=== PATIENT | male | born 1985 | race Caucasian/White ===

== ENCOUNTER 2017-02-17 16:42 | Emergency (ER) | payer OTHER ==
[~2017-02-17] VITALS: Ht 172.7 cm; Wt 85.0 kg
[2017-02-17 16:49] VITALS: Ht 172.7 cm; Wt 85.0 kg
[2017-02-17] MEDS ORDERED: TOPI200C PO (17:53)
[2017-02-17] MEDS ORDERED: BUPR100T14 PO (17:54)
--- NOTE | 2017-02-17 18:43 | RADRPT ---
PROCEDURE: Noncontrast CT Head. CLINICAL INDICATION: Trauma. TECHNIQUE: Noncontrast CT of the head was obtained. The administered radiation dose was CTDI vol = 45.01 mGy, DLP = 900.28 mGy-cm. One or more of the following dose reduction techniques were used: Au tomated exposure control, Adjustment of the mA and/or kV according to patient size, or Use of iterat reji reconstruction technique. COMPARISON: There are no similar studies submitted for comparison. FINDINGS: The ventricles and sulci are within normal limits. There is no loss of bowman-white differentiation to suggest acute territorial infarction. There is no acute intracranial hemorrhage. There is no mass effect. No midline shift is identified. The orbits are within normal limits. There is minimal left sphenoid sinus mucosal thickening. No destructive osseous lesion is identified. IMPRESSION: No acute intracranial hemorrhage. Further findings as detailed above. RPTAT: PP .Hero Hinton MD, MD Date Time Electronically viewed and signed by .Hero Hinton MD, on 02/17/2017 18:43 .F/
--- NOTE | 2017-02-17 18:49 | RADRPT ---
PROCEDURE: CT Cervical Spine without contrast. CLINICAL INDICATION: Trauma. TECHNIQUE: Noncontrast CT of the cervical spine was performed with axial images. Coronal and sagitta l images were also performed. The administered radiation dose was CTDI vol = 22.27 mGy, DLP = 542.6 2 mGy-cm. One or more of the following dose reduction techniques were used: Automated exposure contr ol, Adjustment of the mA and/or kV according to patient size, or Use of iterative reconstruction yazmin hnique. COMPARISON: There are no similar studies submitted for comparison. FINDINGS: Evaluation is mildly limited due to motion degradation. There is straightening of the normal cervical lordosis. The vertebral body heights are maintained. There is normal alignment. There is no destructive osseous lesion. No definite acute fracture is identified. C2-C3 : There is no disc herniation, spinal canal, or foraminal stenosis. C3-C4 : There is a 1 mm broad-based disc osteophyte complex without spinal canal or bilateral forami nal stenosis. C4-C5 : There is mild to moderate disc space narrowing. There is 1 mm broad-based disc osteophyte co mplex without spinal canal or bilateral foraminal stenosis. C5-C6 : There is 1 mm broad-based disc osteophyte complex without spinal canal stenosis. There is mi ld by facet arthropathy without bilateral foraminal stenosis. C6-C7 : There is no disc herniation, spinal canal, or foraminal stenosis. C7-T1 : There is no disc herniation, spinal canal, or foraminal stenosis. IMPRESSION: Evaluation is mildly limited due to motion degradation. 1. No definite acute fracture or subluxation. 2. Mild degenerative changes without spinal canal or bilateral foraminal stenosis. 3. Straightening of the normal cervical lordosis. Further findings as detailed above. RPTAT: PP .Hero Hinton MD, Date Time Electronically viewed and signed by .Hero Hinton MD, MD on 02/17/2017 18:48 .F/
--- NOTE | 2017-02-17 19:18 | ERD ---
ER Documentation Chief Complaint Chief Complaint etoh intoxication, fell on his face, abrasion on R side of face HPI 1-year-old male presents with acute alcohol intoxication. He was found in public and when he was approached he fell forward and scraped his face on the cement. He admits he was drinking alcohol earlier this afternoon. Currently denies pain. States that he does remember falling and did not lose consciousness. Denies nausea or vomiting. ROS All systems reviewed and are negative except as per history of present illness however patient is intoxicated and I believe this history is unreliable.. Medications Home Meds Reported Medications Bupropion Hcl* (Bupropion Hcl*) 100 Mg Tablet, 100 MG PO QAM, TAB 02/17/17 Topiramate* (Trokendi XR*) 200 Mg Cap.er.24h, 200 MG PO QHS, CAP 02/17/17 Allergies Allergies: Coded Allergies: Penicillins (Unverified Allergy, Unknown, 02/17/17) ampicillin (Unverified Allergy, Unknown, 02/17/17) erythromycin base (Unverified Allergy, Unknown, 02/17/17) sulfamethoxazole (Unverified Allergy, Unknown, 02/17/17) trimethoprim (Unverified Allergy, Unknown, 02/17/17) PMhx/Soc Medical and Surgical Hx: pt denies Surgical Hx History of Surgery: No Anesthesia Reaction: No Hx Neurological Disorder: No Hx Respiratory Disorders: No Hx Cardiac Disorders: No Hx Psychiatric Problems: Yes (BIPOLAR, ETOH ABUSE) Hx Miscellaneous Medical Probl: Yes (ETOH ABUSE) Hx Alcohol Use: Yes Hx Substance Use: No Hx Tobacco Use: No Smoking Status: Never smoker Physical Exam Vitals Vital Signs Date Time Temp Pulse Resp B/P Pulse Ox O2 Delivery O2 Flow Rate FiO2 02/17/17 16:49 98.6 124 20 131/87 96 Physical Exam Const: [] No distress Head: Abrasion to right cheek and tip of right nose. Eyes: Normal Conjunctiva, EOMI, PERRLA ENT: Normal External Ears, Nose and Mouth. Membranes clear bilaterally with no blood or fluid, no septal hematoma, no bleeding from nose. Neck: Full range of motion..~No midline tenderness. Resp: Clear to auscultation bilaterally Cardio: Regular rate and rhythm, no murmurs Abd: Soft, non tender, non distended. Normal bowel sounds Skin: No petechiae or rashes Back: No midline or flank tenderness Ext: No cyanosis, or edema, mild abrasion to dorsal right ankle. No pain on range of motion, no swelling. Distal pulses intact all 4 extreme Neur: Awake and alert oriented 3, no slurred speech but does appear intoxicated, cranial nerves II through XII intact, no cerebellar deficits. Psych: Normal Mood and Affect Procedures/MDM 31-year-old male with all alcohol intoxication and facial injury. CT head and neck was performed due to inability to clear the patient by Nexus criteria and obvious head injury. He has no signs of skull fracture or intracranial lesions and no neck fracture. He was monitored for 2-1/2 hours after which she had no slurred speech was speaking reasonably and ambulating well. He still denied any pain except for mild pain at his abrasion sites. He did not want any pain medication. States that he regrets his actions earlier in the day. Does not have any joint pain. Mental status is intact as well as complete neurological exam within normal limits. I am going to discharge him with primary care follow -up and return precautions. I have lectured him greater than 3 minutes in alcohol cessation. Departure Diagnosis: Primary Impression: Head injury Additional Impressions: Alcoholic intoxication Abrasion head Condition: Stable Patient Instructions: Alcohol Intoxication, HEAD INJURY, No Wake-Up (Adult) Additional Instructions: Call your primary care doctor TOMORROW for an appointment during the next 2-3 days.See the doctor sooner or return here if your condition worsens before your appointment time. DRAKE KING DO Feb 17, 2017 19:18
== END 2017-02-17 18:45 | disposition home or self-care (01) ==
LOC: E/R 16:42
DX: S00.91XA Abrasion of unspecified part of head, initial encounter (principal); R40.2242 Coma scale, best verbal response, confused conversation, at arrival to emergency department; R40.2142 Coma scale, eyes open, spontaneous, at arrival to emergency department; R40.2362 Coma scale, best motor response, obeys commands, at arrival to emergency department; R51 Headache; W18.39XA Other fall on same level, initial encounter; Y92.9 Unspecified place or not applicable
CPT/HCPCS: 70450; 72125; Z7502